=== PATIENT | male | born 1935 | race Caucasian/White ===

== ENCOUNTER 2017-12-27 23:44 | Emergency (ER) | payer OTHER ==
[~2017-12-27] VITALS: Ht 180.3 cm; Wt 101.9 kg
[~2017-12-27 23:44] MED LIST: AMARYL2 MG PO; Amaryl PO; CARDIZEM CD180 MG PO; CARDIZEM90 MG PO; COZAAR25 MG PO; Cardizem CD,Cartia X PO; Colace PO; Cozaar PO; ECOTRIN325 MG PO; Ecotrin PO; Feosol PO; GLUCOPHAGE1000 MG PO; Glucophage PO; MOBIC15 MG PO; NORCO 5/3251 TABLET PO; PRAVACHOL40 MG PO; Pravachol PO; Vicodin,Norco 5/325 PO; celeBREX PO
[2017-12-28] MEDS ORDERED: ULTRAM50 MG PO (03:22)
[2017-12-28] MEDS ORDERED: KENALOG,ARISTOC80 GM TP (03:23)
[2017-12-28 03:50] VITALS: BP 139/99
== END 2017-12-28 04:02 | disposition home or self-care (01) ==
LOC: EME 23:44
DX: S22.41XA Multiple fractures of ribs, right side, initial encounter for closed fracture (principal); W10.9XXA Fall (on) (from) unspecified stairs and steps, initial encounter; R21 Rash and other nonspecific skin eruption; I10 Essential (primary) hypertension; E11.9 Type 2 diabetes mellitus without complications; Z79.84 Long term (current) use of oral hypoglycemic drugs; Z79.82 Long term (current) use of aspirin
CPT/HCPCS: 71046; 71250; 99281; 99284

== ENCOUNTER 2018-03-22 07:16 | Emergency (ER) | payer OTHER ==
[~2018-03-22] VITALS: Ht 177.8 cm; Wt 96.7 kg
[~2018-03-22 07:16] MED LIST changes: +KENALOG,ARISTOC80 GM TP; +ULTRAM50 MG PO
[2018-03-22 07:55] LABS: HEMATOCRIT 38.4 % (38.0-50.0); HEMOGLOBIN 13.6 G/DL (12.5-16.6); MCH 35.3 PG (29.0-34.0); MCHC 35.4 G/DL (30.0-36.0); MCV 99.7 FL (86-99); PLATELET COUNT 260 K/uL (156-360); RBC DIS.WIDTH-CV 12.1 % (11.8-14.6); RBC DIS.WIDTH-SD 43.8 % (39-53); RED BLOOD COUNT 3.85 M/uL (4.00-5.50); WHITE BLOOD COUNT 9.6 K/uL (4.1-10.2)
[2018-03-22 08:02] LABS: INTER. NORMALIZED RATIO 1.1
[2018-03-22 08:05] LABS: PTT 31.4 SEC (25-37)
[2018-03-22 08:23] LABS: CHLORIDE 106 MEQ/L (99-109); POTASSIUM 5.1 MEQ/L (3.7-5.4); SODIUM 136 MEQ/L (136-147)
[2018-03-22 08:29] LABS: CREATININE 1.2 MG/DL (0.6-1.3); GFR ESTIMATE (CALCULATED) > 59 mL/min/ (58.99-99999); GLUCOSE 195 mg/dL (70-99); UREA NITROGEN (BUN) 31 mg/dL (9-23)
[2018-03-22 09:04] VITALS: BP 138/89
== END 2018-03-22 09:05 | disposition home or self-care (01) ==
LOC: EME 07:16
PROVIDERS: Nurse Practitioner Family
DX: R04.0 Epistaxis (principal); I10 Essential (primary) hypertension; E11.9 Type 2 diabetes mellitus without complications; Z79.84 Long term (current) use of oral hypoglycemic drugs; Z79.82 Long term (current) use of aspirin; Z95.9 Presence of cardiac and vascular implant and graft, unspecified; Z91.018 Allergy to other foods
CPT/HCPCS: 80048; 85027; 85610; 85730; 99281; 99283